=== PATIENT | male | born 2000 | race Caucasian/White ===

== ENCOUNTER 2018-10-22 02:08 | Emergency (ER) | payer OTHER ==
[~2018-10-22] VITALS: Ht 177.8 cm; Wt 70.3 kg
[2018-10-22 02:08] VITALS: BP 126/71
== END 2018-10-22 03:03 | disposition home or self-care (01) ==
LOC: ER 02:08
DX: N50.89 Other specified disorders of the male genital organs (principal); F41.9 Anxiety disorder, unspecified

== ENCOUNTER 2020-05-08 23:23 | Emergency (ER) | payer OTHER ==
[~2020-05-08] VITALS: Ht 188 cm; Wt 81.6 kg
[2020-05-08 23:35] VITALS: BP 128/83
[2020-05-08] MEDS ORDERED: MAG HYDROX/AL HYDROX/SIMETH 30 ML UDC ONE (23:53)
[2020-05-08] MEDS ORDERED: LORAZEPAM 1 MG TABLET ONE (23:53)
[2020-05-09] MEDS ORDERED: LORAZEPAM 1 MG TABLET PO ONE
[2020-05-09] MEDS ORDERED: MAG HYDROX/AL HYDROX/SIMETH 30 ML UDC PO ONE
[2020-05-09] MEDS ORDERED: PANT40TA2 PO (00:18)
[2020-05-09] MEDS ORDERED: LORA-259 PO (00:18)
== END 2020-05-09 00:28 | disposition home or self-care (01) ==
LOC: ER 23:23
DX: F41.9 Anxiety disorder, unspecified (principal); F90.9 Attention-deficit hyperactivity disorder, unspecified type; Z60.2 Problems related to living alone; Z79.899 Other long term (current) drug therapy